=== PATIENT | male | born 1990 | race Caucasian/White ===

== ENCOUNTER 2018-10-02 14:23 | Emergency (ER) | payer BC ==
[2018-10-02] MEDS ORDERED: LORazepam 2 MG/ML SDV IVPUSH ONE (14:40)
[2018-10-02] MEDS ORDERED: Sodium Chloride 0.9% 1,000 ML IV ONE (14:42)
[2018-10-02 15:16] LABS: CHLORIDE,CL 102 mmol/L (98-107); SODIUM,NA 138 mmol/L (136-148)
--- NOTE | 2018-10-02 15:25 | CT ---
INDICATION: Neck pain TECHNIQUE: CT cervical spine without i.v. contrast. Coronal and sagittal reformats were obtained. COMPARISON: None FINDINGS: Alignment: Unremarkable. Bone: No acute fractures or aggressive bone lesions are identified. Disc: The disc spaces are unremarkable in appearance. The facet joints are unremarkable. Soft tissue: The prevertebral soft tissues are unremarkable in appearance. The visualized lung apices and mediastinum are unremarkable. IMPRESSION: 1. No acute osseous injuries are identified. Please note that all CT scans at this facility use dose modulation, iterative reconstruction, and/or weight-based dosing when appropriate to reduce radiation dose to as low as reasonably achievable. Dictated by: Angelito Tuttle MD @ 10/02/2018 15:24:00 (Electronically Signed)
[2018-10-02] MEDS ORDERED: Ondansetron 4 MG/2 ML SDV IVPUSH ONE (15:31)
[2018-10-02] MEDS ORDERED: Ketorolac 30 MG/ML SDV IVPUSH ONE (15:31)
[2018-10-02] MEDS ORDERED: Potassium Chloride 20 MEQ Tab.ER PO SCH (15:45)
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
== END 2018-10-02 16:15 | disposition home or self-care (01) ==
LOC: MW.ED 14:23
DX: G43.909 Migraine, unspecified, not intractable, without status migrainosus (principal); F41.9 Anxiety disorder, unspecified
CPT/HCPCS: 36415; 72125; 80053; 81003; 82550; 84484; 85025; 93005; 96361; 96374; 96375; 99285; A9270; J1885; J2060; J2405; J7040; 99283